=== PATIENT | female | born 1990 | race Caucasian/White ===

== ENCOUNTER 2021-12-04 14:51 | Emergency (ER) | payer BC, SELFPAY ==
[2021-12-04 14:58] VITALS: BP 140/85; PULSE 102; RESP 20; TEMP 37.2; O2SAT 100
--- NOTE | 2021-12-04 15:41 | ED.URI ---
HPI - URI/Sore Throat General Chief Complaint: Ear Stated Complaint: sinus issues and left ear Time Seen by Provider: 12/04/21 15:15 Source: patient, RN notes reviewed and old records reviewed Mode of arrival: ambulatory Limitations: no limitations History of Present Illness HPI Narrative: 31-year-old female presents to [facility] care with complaints of left ear pain, sinus congestion with greenish nasal drainage, some cough with no shortness of breath verbalized since Saturday morning. Patient reports that she has had some greenish tinged sinus drainage and some phlegm. Patient reports that she has been taking Sudafed, Claritin and Midol for her pain. Patient denies any fevers, chills or sweats, denies any body aches, has had COVID vaccinations. MD elicited complaint: cough, rhinorrhea, nasal congestion and other (left ear pain) Onset (ago): day(s) (3) Pain scale (0-10): 5 Treatments prior to arrival: other (sudafed, claritin, and Midol) Related Data Allergies Allergy/AdvReac Type Severity Reaction Status Date / Time No Known Allergies Allergy Unverified 12/04/21 15:05 Review of Systems Review of Systems: CONSTITUTIONAL: Denies fever, chills, or sweats. EYES: Denies visual changes, redness, or discharge. ENT: Positive for rhinorrhea, congestion, no sore throat, positive for left otalgia. CARDIOVASCULAR: Denies chest pain, palpitations, or edema. RESPIRATORY: Positive for cough denies dyspnea. GASTROINTESTINAL: Denies abdominal pain, nausea, vomiting, or diarrhea. GENITOURINARY: Denies dysuria or hematuria. SKIN: Denies rash or itching. MUSCULOSKELETAL: Denies back pain, joint pain, or myalgia. NEUROLOGIC: Denies headache, numbness, or weakness. PSYCHIATRIC: Denies anxiety or depression. All systems reviewed & are unremarkable except as noted in HPI and below PMFSH Comments At time of signature, agree with nursing past medical, surgical, social and family history. There is no relevant family history pertinent to the presenting complaint Exam Narrative: GENERAL: Well-appearing, well-nourished, and in no acute distress. HEAD: Normocephalic, atraumatic. EYES: PERRLA and EOMI. ENT: Nares red with greenish nasal rhinorrhea no epistaxis. Mucous membranes moist.TM normal right ear with no canal drainage, Left TM red and bulging, no drainage from ear canal, throat with some redness no lesions or swelling present.post nasal drainage noted NECK: Supple.no Lymphadenopathy CHEST: Clear to auscultation. No respiratory distress. SAO2 100% on room air HEART: Regular rate and rhythm. No murmur heard. Normal peripheral pulses. ABDOMEN: Soft, nontender, nondistended, normal active bowel sounds. EXTREMITIES: Normal range of motion. No edema. SKIN: Warm, dry, no rash. NEURO: No focal deficits. Alert and oriented x3. Course Course Level of Care: Express Care Visit Vital Signs Vital signs: Vital Signs Temperature 37.2 C 12/04/21 14:58 Pulse Rate 102 H 12/04/21 14:58 Respiratory Rate 20 12/04/21 14:58 Blood Pressure 140/85 12/04/21 14:58 Pulse Oximetry 100 12/04/21 14:58 Oxygen Delivery Room Air 12/04/21 14:58 Temperature 37.2 C 12/04/21 14:58 Pulse Rate 102 H 12/04/21 14:58 Respiratory Rate 20 12/04/21 14:58 Blood Pressure 140/85 12/04/21 14:58 Pulse Oximetry 100 12/04/21 14:58 Oxygen Delivery Room Air 12/04/21 14:58 MDM - URI/Sore Throat Differential Diagnosis Differential diagnosis: Likely upper respiratory infection, otitis media, sinusitis, viral infection and other Medical Records Attestation: I reviewed the patient's medical records. Critical Care Time Critical Care Time Critical Care Time: No Discharge Plan Discharge Clinical Impression: URI, acute Otitis media Qualifiers: Otitis media type: serous Chronicity: acute Laterality: left Recurrence: non-recurrent Qualified Code(s): H65.02 - Acute serous otitis media, left ear Patient Disposition: Home, Self-Care Condition:
--- NOTE | 2021-12-04 15:53 | ED.EAR ---
HPI - Ear Problem General Chief complaint: Ear Stated complaint: sinus issues and left ear Source: patient, RN notes reviewed and old records reviewed Mode of arrival: ambulatory Limitations: no limitations History of Present Illness HPI Narrative: 31-year-old female who presents to [facility] care with complaints of sinus congestion sinus drainage since Saturday and complaints of ear pain since Saturday. Patient has complaints of occasional cough and nasal drainage of green phlegm MD Complaint: ear pain and other (sinus congestion and drainage) Treatment prior to arrival: oral analgesic and other (sudafed and claritin) Related Data Home Medications Medication Instructions Recorded Confirmed No Home Medications 12/04/21 12/04/21 Allergies Allergy/AdvReac Type Severity Reaction Status Date / Time No Known Allergies Allergy Unverified 12/04/21 15:05 Course Vital Signs Vital signs: Vital Signs Temperature 37.2 C 12/04/21 14:58 Pulse Rate 102 H 12/04/21 14:58 Respiratory Rate 12/04/21 14:58 Blood Pressure 140/85 12/04/21 14:58 Pulse Oximetry 100 12/04/21 14:58 Oxygen Delivery Room Air 12/04/21 14:58 Temperature 37.2 C 12/04/21 14:58 Pulse Rate 102 H 12/04/21 14:58 Respiratory Rate 20 12/04/21 14:58 Blood Pressure 140/85 12/04/21 14:58 Pulse Oximetry 100 12/04/21 14:58 Oxygen Delivery Room Air 12/04/21 14:58 Medical Decision Making Vital Signs Vital Signs: Vital Signs Temperature 37.2 C 12/04/21 14:58 Pulse Rate 102 H 12/04/21 14:58 Respiratory Rate 20 12/04/21 14:58 Blood Pressure 140/85 12/04/21 14:58 Pulse Oximetry 100 12/04/21 14:58 Oxygen Delivery Room Air 12/04/21 14:58 Temperature 37.2 C 12/04/21 14:58 Pulse Rate 102 H 12/04/21 14:58 Respiratory Rate 20 12/04/21 14:58 Blood Pressure 140/85 12/04/21 14:58 Pulse Oximetry 100 12/04/21 14:58 Oxygen Delivery Room Air 12/04/21 14:58 Discharge Plan Discharge Clinical Impression: Otitis media, URI, acute Patient Disposition: Home, Self-Care Condition: Stable Instructions: Antibiotic Form Additional Instructions: Increase fluids especially juices and water [id number] cough and cold medicine of your choice for your symptoms Continue Claritin Bell or Sudafed daily can takeSudafed as needed for decongestant Tylenol or ibuprofen for any fever pain heat to the face 20-30 minutes 4-6 times a day for pain Salt water gargles, throat lozenges or throat sprays as desired Antibiotic as directed--finished the medication If your symptoms persist, change or worsen significantly before you can contact your personal physician then please, without delay, go to the emergency department for further evaluation. Follow-up with PCP in 7-10 days or sooner if needed Follow up with PCP soon in regards to your blood pressure which is elevated above threshold for referral. Blood pressure above 120/80 may indicate pre-hypertension. Blood pressure 140/85 Prescriptions: No Action No Home Medications Follow-up/Referrals: PHYSICIAN NOT ON STAFF,NONSTAFF [Primary Care Provider] -
== END 2021-12-04 16:08 | disposition home or self-care (01) ==
PROVIDERS: Emergency Provider Registered Nurse
DX: J06.9 Acute upper respiratory infection, unspecified (principal); H65.02 Acute serous otitis media, left ear
CPT/HCPCS: 99213; G0463